=== PATIENT | male | born 1980 | race Caucasian/White ===

== ENCOUNTER 2024-07-09 08:53 | Outpatient (CLI) | payer OTHER, SELFPAY | END 2024-07-09 08:54 | disposition home or self-care (01) | PROVIDERS: Visit Provider Family Medicine | DX: E29.1 Testicular hypofunction (principal); Z12.5 Encounter for screening for malignant neoplasm of prostate; Z76.89 Persons encountering health services in other specified circumstances; Z11.59 Encounter for screening for other viral diseases; Z79.811 Long term (current) use of aromatase inhibitors | CPT/HCPCS: 80053; 80061; 84403; 86803; G0103 ==